=== PATIENT | female | born 1990 | race African-American/Black ===

== ENCOUNTER → 2020-08-16 | Emergency (ER) | payer OTHER ==
[~2020-08-16] VITALS: Ht 149.9 cm; Wt 66.2 kg
== END | disposition home or self-care (01) ==
LOC: ER 21:41
DX: O20.0 Threatened abortion (principal)

== ENCOUNTER 2021-03-06 22:44 | Inpatient (IN) | payer OTHER ==
[~2021-03-06] VITALS: Ht 149.9 cm; Wt 82.6 kg
[2021-03-07] MEDS ORDERED: PRENATAL + DHA1 EAC1 (00:34)
[2021-03-07] MEDS ORDERED: VAZALORE81 MG (00:34)
[2021-03-07] MEDS ORDERED: LABETALOL HCL100 MG PO (00:35)
== END 2021-03-09 13:48 | disposition home or self-care (01) | DRG 806 ==
LOC: LDR 22:44 → OB/GYN 03-08 17:35 → LDR 03-08 22:02
PROVIDERS: ADMIT Obstetrics & Gynecology; ATTEND Obstetrics & Gynecology
PROC: 3E0P7VZ Introduction of Hormone into Female Reproductive, Via Natural or Artificial Opening (ICD-10-PCS; 2021-03-06)
PROC: 4A1HXFZ Monitoring of Products of Conception, Cardiac Rhythm, External Approach (ICD-10-PCS; 2021-03-06)
PROC: 10E0XZZ Delivery of Products of Conception, External Approach (ICD-10-PCS; principal; 2021-03-07)
PROC: 0HQ9XZZ Repair Perineum Skin, External Approach (ICD-10-PCS; 2021-03-07)
PROC: 10907ZC Drainage of Amniotic Fluid, Therapeutic from Products of Conception, Via Natural or Artificial Opening (ICD-10-PCS; 2021-03-07)
DX: O70.0 First degree perineal laceration during delivery (principal); O10.02 Pre-existing essential hypertension complicating childbirth; Z37.0 Single live birth; O99.824 Streptococcus B carrier state complicating childbirth; Z3A.38 38 weeks gestation of pregnancy